=== PATIENT | female | born 1995 | race Caucasian/White ===

== ENCOUNTER 2025-07-30 16:31 | Emergency (ER) | payer OTHER ==
[~2025-07-30] VITALS: Ht 172.7 cm; Wt 76.0 kg
[2025-07-30] MEDS: KETOROLAC 60 MG/2 ML VIAL IM ONE (17:46)
[2025-07-30] MEDS: ACETAMINOPHEN 325 MG TAB PO ONE (18:29)
[2025-07-30] MEDS: LIDOCAINE 5% PATCH TD ONE (18:30)
[2025-07-30] MEDS ORDERED: KETO-204 PO (19:12)
[2025-07-30] MEDS ORDERED: METH-1165 PO (19:12)
[2025-07-30 19:27] VITALS: BP 98/53; TEMP 98.7; O2SAT 100
== END 2025-07-30 19:25 | disposition home or self-care (01) ==
LOC: M ED 16:31
DX: S39.012A Strain of muscle, fascia and tendon of lower back, initial encounter (principal); X50.0XXA Overexertion from strenuous movement or load, initial encounter; Y92.89 Other specified places as the place of occurrence of the external cause; Y93.B3 Activity, free weights; Y99.1 Military activity; Z79.899 Other long term (current) drug therapy
CPT/HCPCS: 96372; 99284; J1885